=== PATIENT | female | born 1935 | race Two or more races ===

== ENCOUNTER 2017-06-25 13:18 | Emergency (ER) | payer OTHER, MEDICAID ==
[~2017-06-25] VITALS: Ht 162.6 cm; Wt 71.7 kg
[2017-06-25 14:18] VITALS: BP 144/66
== END 2017-06-25 15:50 | disposition home or self-care (01) ==
LOC: ER 13:25
DX: R22.1 Localized swelling, mass and lump, neck (principal); E11.9 Type 2 diabetes mellitus without complications
CPT/HCPCS: 70490